=== PATIENT | female | born 1950 | race Two or more races ===

== ENCOUNTER 2018-04-05 18:23 | Emergency (ER) | payer OTHER ==
[~2018-04-05] VITALS: Ht 167.6 cm; Wt 63.5 kg
[2018-04-05] MEDS ORDERED: Bacitracin Oint UD TOPIC ONE (19:15)
[2018-04-05] MEDS ORDERED: Tetanus/Diptheria/Pertussis Vaccine 0.5ml Syr IM ONE (19:15)
--- NOTE | 2018-04-05 19:23 | Emergency Room Report ---
History of Present Illness General Chief Complaint: Animal Bite Source: Patient Present Illness HPI 67-year-old female presents emergency department complaining of dog bite to the left lateral thigh while at work approximately one hour ago. Patient reports that she is not sure if she is up-to-date with her tetanus vaccination or not. He denies taking blood thinning medications she denies bleeding at this time. Information about dog is unknown. describes dog to be small in size. Denies numbness tingling or loss of sensation or gross motor movements of the affected extremity. Allergies: Coded Allergies: ACETAMINOPHEN (Verified Allergy, Unknown, 04/05/18) Patient History Past Medical History: see triage record Past Surgical History: none Pertinent Family History: none Last Menstrual Period: NA Reviewed Nursing Documentation: PMH: Agreed; PSxH: Agreed Nursing Documentation-PMH Past Medical History: No History, Except For Hx Hypertension: Yes Review of Systems All Other Systems: negative except mentioned in HPI Physical Exam Vital Signs Date Time Temp Pulse Resp B/P (MAP) Pulse Ox O2 Delivery O2 Flow Rate FiO2 04/05/18 18:32 98.1 65 16 214/102 97 Room Air 98.1 Sp02 EP Interpretation: reviewed, normal General Appearance: no apparent distress, alert, GCS 15, non-toxic Head: normocephalic, atraumatic ENT: hearing grossly normal, normal voice Neck: full range of motion Respiratory: chest non-tender, lungs clear, normal breath sounds, speaking full sentences Cardiovascular #1: regular rate, rhythm Cardiovascular #2: 2+ dorsalis pedis (L) Musculoskeletal: back normal, gait/station normal, normal range of motion, tender - mild ttp superficially/soft tissues overlying dog bite lateral left thigh, no bony ttp. Neurologic: alert, oriented x3, responsive, motor strength/tone normal, sensory intact, normal gait, speech normal, grossly normal Psychiatric: judgement/insight normal Skin: normal color, no rash, warm/dry, well hydrated, other - dog bite, 1cm linear, no injury to tissues deeper than dermis level on the lateral left thigh Medical Decision Making PA Attestation Dr. Barth is my supervising Physician whom patient management has been discussed with. Diagnostic Impression: Primary Impression: Dog bite of left thigh Qualified Codes: S71.152A - Open bite, left thigh, initial encounter; W54.0XXA - Bitten by dog, initial encounter ER Course 67-year-old female presents emergency department complaining of dog bite to the left lateral thigh while at work approximately one hour ago. Patient reports that she is not sure if she is up-to-date with her tetanus vaccination or not. He denies taking blood thinning medications she denies bleeding at this time. Information about dog is unknown. describes dog to be small in size. Denies numbness tingling or loss of sensation or gross motor movements of the affected extremity. Ddx considered but are not limited to Cellulitis, rabies, fracture, neurovascular compromise of extremity. Vital signs: are WNL, pt. is afebrile H&PE are most consistent with dog bite, 1cm linear, no injury to tissues deeper than dermis level on the lateral left thigh. ORDERS: none required at this time, the diagnosis is clinical ED INTERVENTIONS: -Tetanus vaccination is administered. -Augmentin PO -Wound care ( moderate irrigation) + Bacitracin DISCHARGE: At this time pt. is stable for d/c to home. Will provide printed patient care instructions, and any necessary prescriptions. Care plan and follow up instructions have been discussed with the patient prior to discharge. * Augmentin TID x 7 days. Last Vital Signs Date Time Temp Pulse Resp B/P (MAP) Pulse Ox O2 Delivery O2 Flow Rate FiO2 04/05/18 19:07 98.1 04/05/18 18:32 65 16 214/102 97 Room Air Disposition: HOME, SELF-CARE Condition: Stable Scripts Ibuprofen* (MOTRIN*) 400 Mg Tablet 400 MG ORAL THREE TIMES A DAY, #20 TAB 0 Refills Prov: Shoshana Burch 04/05/18 Bacitracin/Polymyxin B Sulfate (BACITRACIN-POLYMYXIN OINTMENT) 28.35 Gm Oint...g. 1 APPLIC TP BID, #28.3 GM Prov: Shoshana Burch 04/05/18 Amoxicillin/Potassium Clav 875-125* (AUGMENTIN 875-125 TABLET*) 1 Each Tablet 1 TAB ORAL TWICE A DAY for 7 Days, #14 TAB Prov: Shoshana Burch 04/05/18 Patient Instructions: Animal Bite Additional Instructions: Take medications as directed. Follow up with a Primary Care Provider in 3-5 days, even if your symptoms have resolved. --Please review list of primary care clinics, if you do not already have a primary care provider Return sooner to ED if new symptoms occur, or current symptoms become worse. - Please note that this Emergency Department Report was dictated using [employer]mittableindustrial safety and health technician technology software, occasionally this can lead to erroneous entry secondary to interpretation by the dictation equipment. Shoshana Burch Apr 05, 2018 19:23
[2018-04-05 20:00] VITALS: BP 163/93
[2018-04-05] MEDS ORDERED: BACITRACIN-P28.35 GM TP (20:07)
[2018-04-05] MEDS ORDERED: IBUPROFEN400 MG ORAL (20:07)
[2018-04-05] MEDS ORDERED: AUGMENTIN 875-1 EAC1 ORAL (20:07)
[2018-04-05 20:15] VITALS: BP 163/93
== END 2018-04-05 20:15 | disposition home or self-care (01) ==
LOC: EMR 19:00
DX: S71.152A Open bite, left thigh, initial encounter (principal); W54.0XXA Bitten by dog, initial encounter; Z88.6 Allergy status to analgesic agent; I10 Essential (primary) hypertension; Z23 Encounter for immunization; Z20.3 Contact with and (suspected) exposure to rabies
CPT/HCPCS: 90471; 90715; 99284